=== PATIENT | male | born 1945 | race Caucasian/White ===

== ENCOUNTER 2016-06-30 22:21 | Emergency (ER) | payer MEDICARE ==
[2016-05-12 14:30] VITALS: BMI 22.6
[~2016-06-30 22:21] MED LIST: ARICEPT10 MG PO; ATIVAN1 MG PO; CLARITIN 10 MG10 MG PO; COREG6.25 MG PO; HYDROCODON-ACE1 EAC7 PO; KLONOPIN1 MG PO; NITROSTAT0.4 MG SL; NORVASC5 MG PO; PEPCID AC20 MG PO; PLAVIX75 MG PO; PRAVACHOL40 MG PO; PROZAC40 MG PO; TRAVATAN Z2.5 ML EACH EYE; TRAZODONE HCL50 MG PO
[2016-07-01 00:14] LABS: HEMATOCRIT 38.2 % (42.0-54.0); HEMOGLOBIN 13.5 g/dL (13.5-17.5); LYMPHOCYTES 24.1 % (15-50); MCH 31.8 pg (26.0-34.0); MCHC 35.3 g/dL (31.0-37.0); MCV 89.9 fL (80.0-100.0); MEAN PLATELET VOLUME 9.1 fL (7.4-10.4); PLATELET COUNT 228 10x3/uL (130-400); RBC 4.25 10x6/uL (4.20-6.10); RDW 12.1 % (11.5-14.5); WBC 9.2 10x3/uL (4.8-10.8)
[2016-07-01 00:48] LABS: ALBUMIN 3.6 g/dL (3.4-5.0); ALKALINE PHOSPHATASE 56 U/L (46-116); ALT (SGPT) 30 U/L (10-68); CALC OSMOLALITY 277 mosm/kg (275-300); CALCIUM 8.5 mg/dL (8.5-10.1); CARBON DIOXIDE 28.6 mmol/L (21.0-32.0); CHLORIDE - SERUM 102 mmol/L (98-107); CREATININE - SERUM 1.2 mg/dL (0.6-1.3); GLUCOSE 99 mg/dL (74-106); POTASSIUM - SERUM 3.7 mmol/L (3.5-5.1); PROTEIN - SERUM 6.9 g/dL (6.4-8.2); SODIUM 138 mmol/L (136-145); UREA NITROGEN 17 mg/dL (7-18); eGFR NON AFRICAN AMERICAN 64 mL/min (90-120)
[2016-07-01 00:56] LABS: CREATINE KINASE 400 UL (21-232); THYROID STIMULATING HORMONE 2.81 uIU/mL (0.36-3.74); TROPONIN-I < 0.017 ng/mL (0.000-0.060)
[2016-07-01 00:57] LABS: CKMB 5.2 U/L (0.0-3.6)
[2016-07-01 01:02] LABS: APPEARANCE CLEAR (CLEAR); BILIRUBIN NEGATIVE (NEGATIVE); COLOR YELLOW (YELLOW); GLUCOSE NEGATIVE (NEGATIVE); KETONE NEGATIVE (NEGATIVE); LEUKOCYTE ESTERASE NEGATIVE (NEGATIVE); NITRITE NEGATIVE (NEGATIVE); PROTEIN NEGATIVE (NEGATIVE); UROBILINOGEN NORMAL (NORMAL)
[2016-07-01 01:11] LABS: UDS - AMPHET NEGATIVE QUAL (NEGATIVE); UDS - BARB NEGATIVE QUAL (NEGATIVE); UDS - BENZO NEGATIVE QUAL (NEGATIVE); UDS - COCAINE NEGATIVE QUAL (NEGATIVE); UDS - METH NEGATIVE QUAL (NEGATIVE); UDS - OPIATE NEGATIVE QUAL (NEGATIVE); UDS - PCP NEGATIVE QUAL (NEGATIVE); UDS - THC NEGATIVE QUAL (NEGATIVE)
== END 2016-07-01 08:45 ==
LOC: D.ER 22:21
PROVIDERS: Family Medicine
DX: R41.82 Altered mental status, unspecified (principal); I25.10 Atherosclerotic heart disease of native coronary artery without angina pectoris; F03.90 Unspecified dementia, unspecified severity, without behavioral disturbance, psychotic disturbance, mood disturbance, and anxiety; F32.9 Major depressive disorder, single episode, unspecified; H40.9 Unspecified glaucoma; F42.9 Obsessive-compulsive disorder, unspecified